=== PATIENT | female | born 1980 | race Caucasian/White ===

== ENCOUNTER 2017-02-25 17:27 | Inpatient (IN) | payer OTHER ==
[~2017-02-25] VITALS: Ht 162.6 cm; Wt 93.6 kg
[~2017-02-25 17:27] MED LIST: FERR27TA PO; INSU100V18 SQ; NPH,100V10 SQ; PREN1TAB49 PO
[2017-02-25 18:16] VITALS: Ht 162.6 cm; Wt 93.6 kg
[2017-02-25] MEDS ORDERED: METH250T PO (18:16)
[2017-02-25 18:17] VITALS: BP 126/85; PULSE 88; RESP 18
[2017-02-25 19:22] LABS: ADD SCAN DIFF NO
[2017-02-25 19:24] LABS: BASOPHILS % 0.4 % (0.0-2.0); EOSINOPHILS # 0.1 10^3/ul (0.0-0.5); EOSINOPHILS % 0.7 % (0.0-7.0); HEMATOCRIT 37.3 % (37.0-47.0); HEMOGLOBIN 12.9 g/dl (12.0-16.0); LYMPHOCYTES % 26.4 % (15.0-51.0); MEAN CORPUSCULAR HEMOGLOBIN 30.7 pg (29.0-33.0); MEAN CORPUSCULAR HGB CONC 34.6 g/dl (32.0-37.0); MEAN CORPUSCULAR VOLUME 88.8 fl (82.0-101.0); MEAN PLATELET VOLUME 10.7 fl (7.4-10.4); MONOCYTE # 0.6 10^3/ul (0.3-0.9); MONOCYTES % 5.6 % (0.0-11.0); NEUTROPHIL # 7.5 10^3/ul (1.6-7.5); NEUTROPHILS % 66.5 % (39.0-77.0); PLATELET COUNT 255 10^3/UL (140-415); RED CELL DISTRIBUTION WIDTH 13.9 % (11.5-14.5); WHITE BLOOD COUNT 11.3 10^3/ul (4.8-10.8)
--- NOTE | 2017-02-25 19:30 | RADRPT ---
PROCEDURE: US OB biophysical profile. CLINICAL INDICATION: decreased movements, hypertension TECHNIQUE: Multiple sonographic images of the pelvis were obtained. The images were reviewed on a PACS workstation. COMPARISON: No prior studies are available for comparison. FINDINGS: There is a single viable intrauterine gestation. Cardiac activity is present with 135 beats per min [place]. There is a vertex presentation. The placenta is fundal. There is no evidence of placental abruption. There is a normal amount of amniotic fluid with an CRISTINA = 12.4 the cm. Biophysical profile: movement 2/2 tone 2/2. breathing 2/2 CRISTINA 2/2 Total 03/30 RPTAT: AA . IMPRESSION: Normal biophysical profile. . .Silverio Santos MD, Date Time Electronically viewed and signed by .Silverio Santos MD, MD on 02/25/2017 19:30 .S/
[2017-02-25 19:45] LABS: ALBUMIN 3.9 g/dl (3.3-4.9); ALBUMIN/GLOBULIN RATIO 1.18; BILIRUBIN,INDIRECT 0.1 mg/dl (0-1.1); BILIRUBIN,TOTAL 0.1 mg/dl (0.2-1.3); CALCIUM 9.6 mg/dl (8.4-10.2); CREATININE 0.5 mg/dl (0.44-1.00); POTASSIUM 3.9 mmol/L (3.5-5.1); TOTAL PROTEIN 7.2 g/dl (6.1-8.1); URIC ACID 4.5 mg/dl (3.1-7.9)
[2017-02-25 19:47] LABS: PROTIME 13.2 Sec (12.2-14.2)
[2017-02-25 19:48] LABS: PARTIAL THROMBOPLASTIN TIME 28.6 Sec (25.0-35.0)
[2017-02-25 20:38] LABS: ADD UMIC YES; UR ASCORBIC ACID 40 mg/dL (NEGATIVE); UR BILIRUBIN (Dip) NEGATIVE (NEGATIVE); UR BLOOD (Dip) 1+ mg/dL (NEGATIVE); UR CLARITY SLIGHTLY CLOUDY (CLEAR); UR COLOR YELLOW (YELLOW); UR GLUCOSE (Dip) NEGATIVE (NEGATIVE); UR KETONES (Dip) 1+ mg/dL (NEGATIVE); UR LEUKOCYTE ESTERASE (Dip) TRACE Leu/ul (NEGATIVE); UR NITRITE (Dip) NEGATIVE (NEGATIVE); UR RBC 12 /HPF (0-5); UR SPECIFIC GRAVITY (Dip) 1.026 (1.003-1.030); UR SQUAMOUS EPITHELIAL CELL FEW /HPF (FEW); UR TOTAL PROTEIN (Dip) NEGATIVE (NEGATIVE); UR UROBILINOGEN (Dip) NEGATIVE (NEGATIVE)
[2017-02-25] MEDS ORDERED: DEXTROSE 5%-LR 1,000 ML IV SCH (20:43)
[2017-02-25] MEDS ORDERED: CARBOPROST 250 MCG INJ IM PRN (21:00)
[2017-02-25] MEDS ORDERED: CEFAZOLIN 2 GM/50 ML (PMX) 50 ML IV SCH (21:00)
[2017-02-25] MEDS ORDERED: OXYTOCIN 30 UNITS/LR 500 ML IV PRN (21:00)
[2017-02-25] MEDS ORDERED: METHYLERGONOVINE 0.2 MG INJ IM PRN (21:00)
[2017-02-25] MEDS ORDERED: OXYTOCIN 30 UNITS/LR 500 ML IV SCH (21:00)
[2017-02-25] MEDS ORDERED: MISOPROSTOL 200 MCG TAB PR PRN (21:00)
[2017-02-25] MEDS ORDERED: INSULIN ASPART [NOVOLOG] 3 ML PEN SC STA (21:06)
[2017-02-25] MEDS ORDERED: DEXTROSE 50% 50 ML SYRINGE IV PRN ×2 (21:30)
[2017-02-25] MEDS ORDERED: GLUCOSE GEL 15 GRAM TUBE PO PRN ×2 (21:30)
[2017-02-25] MEDS ORDERED: GLUCOSE GEL 15 GRAM TUBE BUCCAL PRN (21:30)
[2017-02-25] MEDS ORDERED: GLUCAGON 1 MG INJ IM PRN (21:30)
[2017-02-25] MEDS ORDERED: NPH, HUMAN INSULIN ISOPHANE 3ML VIAL SC ONE (21:30)
[2017-02-25] MEDS: LACTATED RINGER'S 1,000 ML IV SCH (21:32)
[2017-02-25] MEDS: ACCU-CHEK XX SCH ×2 (21:34→23:32)
[2017-02-25] MEDS ORDERED: METHYLDOPA 250 MG TAB PO SCH (22:00)
--- NOTE | 2017-02-25 22:18 | TRIAGE ---
OB Triage Datetime Report Generated by CPN: 02/25/2017 22:18 Datetime: 02/25/2017 21:53 Comments: LOSS OF CONTACT D/T PT'S POSITION WHILE EATING. 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 Datetime: 02/25/2017 21:28 Stage of : Labor Bedside Blood Glucose: 113 (Annotations: LR INFUSING AT 125 ML/HR) Datetime: 02/25/2017 21:23 Assessment Type: Admission Assessment Maternal Assessment Level of Consciousness: Fully Conscious DTR's/Clonus: DTRs 2+; No Clonus Headache: Denies Blurred Vision: No Respiratory Effort: Unlabored; Regular Rhythm; Equal Expansion Breath Sounds, Left: Clear and Equal Breath Sounds, Right: Clear and Equal Nausea/Vomiting: Denies RUQ Epigastric Pain: Denies Facial Edema: None Temperature Route: Oral Fall Risk Assessment History of Falling: (0) No Secondary Diagnosis: (0) No Ambulatory Aid: (0) Bedrest/Nurse Assist IV Therapy: (0) No Gait: (0) Normal/Bedrest/Immobile Mental Status: (0) Oriented to Own Ability Fall Score: 0 Fall Risk Score Definition: No Risk: No action required Pain Assessment Pain Scale: 0 Pain Presence: None/Denies Pain Type: N/A Pain Goal: 0 Pain Assessment Comments: PT DENIES FEELING ANY PAIN, UC'S OR CRAMPING Datetime: 02/25/2017 21:11 Stage of : Labor Datetime: 02/25/2017 20:27 Stage of : Labor Datetime: 02/25/2017 20:10 Stage of : OB Triage Datetime: 02/25/2017 19:55 Stage of : OB Triage Datetime: 02/25/2017 19:50 Stage of : OB Triage Datetime: 02/25/2017 19:40 Stage of : OB Triage Datetime: 02/25/2017 19:30 Stage of : OB Triage Datetime: 02/25/2017 19:15 Stage of : OB Triage Labor Evaluation Frequency: 2-5 Monitor Mode: External Duration (sec)2399: 40-90 Pattern: Normal: <= 5 Contractions in 10 Minutes Resting Tone [place]: Relaxed Heart Rate FHR Baseline Rate: 140 Monitor Mode: External US Variability: Moderate 6-25 bpm Accelerations: 15X15 Decelerations: None Category: Category I Pain Assessment Pain Scale: 0 Pain Presence: None/Denies Pain Type: N/A Pain Relief Measures: Comfort Measures Datetime: 02/25/2017 18:12 Assessment Type: Triage Maternal Assessment Level of Consciousness: Fully Conscious DTR's/Clonus: DTRs 2+; No Clonus Headache: Denies Blurred Vision: No Respiratory Effort: Unlabored; Regular Rhythm; Equal Expansion Breath Sounds, Left: Clear and Equal Breath Sounds, Right: Clear and Equal Nausea/Vomiting: Denies RUQ Epigastric Pain: Denies Lower Extremities Edema: None Degree: None Upper Extremities Edema: None Degree: None Facial Edema: None Fall Risk Assessment History of Falling: (0) No Secondary Diagnosis: (0) No Ambulatory Aid: (0) Bedrest/Nurse Assist IV Therapy: (0) No Gait: (0) Normal/Bedrest/Immobile Mental Status: (0) Oriented to Own Ability Fall Score: 0 Fall Risk Score Definition: No Risk: No action required Datetime: 02/25/2017 18:09 Time of Arrival: 02/25/2017 17:23 EGA: 38.5 Arrived By: Ambulatory Arrived From: Office Chief Complaint: pt sent from clinic for eval. HBP Movement: Present Rupture of Membranes: Denies Vaginal Bleeding: None Vaginal Discharge: Denies Recent Sexual Intercouse: Yes Abdominal Trauma: Not Applicable Patient Complaints: None Time Provider Notified: 02/25/2017 18:30 Provider Notified: ERNESTO Initial Plan: [facility]ICullen PANEL, BPP, EFM
[2017-02-26] MEDS: ACCU-CHEK XX SCH ×4 (01:38→20:05)
[2017-02-26] MEDS: LACTATED RINGER'S 1,000 ML IV SCH ×4 (04:06→22:19)
[2017-02-26] MEDS ORDERED: morphine SULFATE/PF (10 MG/10 ML) INJ ONE (06:45)
[2017-02-26] MEDS ORDERED: FENTAnyl 50 MCG/ML VIAL ONE (06:45)
[2017-02-26] MEDS ORDERED: PHENYLephrine (100 MCG/ML) 5ML SYG ONE (06:45)
--- NOTE | 2017-02-26 06:53 | HP ---
Date/Time of Note Date/Time of Note DATE: 02/26/17 TIME: 06:50 OB - History Hx of Present Free Text/Dictation with 3 prior c/s admitted w/ uterine ctxs : 5 Para: 4 Care: Good Care Ultrasounds: Normal mid trimester US Obstetrical Complications: None, Gestational Diabetes Medical Complications: None Past Family/Social History * Past Medical, Surgical, Family and Obstetric Histories reviewed from chart. OB Admission Exam Vital Signs Vital Signs Vital Signs Date Time Temp Pulse Resp B/P Pulse Ox O2 Delivery O2 Flow Rate FiO2 02/25/17 18:17 98.4 88 18 126/85 95 Room Air Physical Exam HEENT: WNL Heart: Rhythm Normal Lungs: Clear, Equal Abdomen: WNL Extremities: Normal Reflexes: Normal Last 72 hourBlood Glucose Bedside Glucose - 72 Hours Test 02/25/17 18:22 02/25/17 21:28 02/25/17 23:31 02/26/17 01:38 Bedside Glucose 115mg/dL (70-220) 113mg/dL (70-220) 111mg/dL (70-220) 118mg/dL (70-220) Test 02/26/17 03:44 02/26/17 05:34 Bedside Glucose 98mg/dL (70-220) 103mg/dL (70-220) Last 72 hours Lab Results CBC & BMP 02/25/17 19:00 Liver Function Test 02/25/17 19:00 Alanine Aminotransferase (ALT/SGPT) 29 Albumin 3.9 Alkaline Phosphatase 145 H Aspartate Amino Transf (AST/SGOT) 21 Direct Bilirubin 0.00 Total Protein 7.2 OB Assessment/Plan Reason for admission: active labor, section Plan: Section LYRIC OROZCO MD Feb 26, 2017 06:52
[2017-02-26] MEDS ORDERED: OXYTOCIN 30 UNITS/LR 500 ML BAG IV ONE (07:00)
[2017-02-26] MEDS ORDERED: ONDANSETRON 4 MG INJ ONE (07:02)
[2017-02-26] MEDS ORDERED: DEXAMETHASONE 4 MG/ML 1 ML INJ ONE (07:02)
[2017-02-26] MEDS ORDERED: HYDROmorphONE 1 MG/ML SYG IV PRN ×2 (07:30)
[2017-02-26] MEDS ORDERED: NALOXONE (0.4 MG/ML) INJ IV PRN (07:30)
--- NOTE | 2017-02-26 07:39 | OPR ---
Operative Report Planned Procedure Procedure date Feb 26, 2017 Performed by: LYRIC OROZCO MD Assisting provider: QUEENIE REHMAN M.D. Anesthesia Type: spinal Procedure Description Under satisfactory spinal anesthesia, the patient was prepped and draped and placed in a supine position, tilted to the left. Pfannenstiel incision was made , carried through the subcutaneous tissue. Bleeders brought under control with electrocautery. Fascia incised to the length of the incision. Rectus muscles from the fascia, divided midline. Peritoneum exposed, entered through a transverse incision. Exploration of abdomen revealed gravid uterus and multiple omental adhesions which were clamped and lysed and tied using one monocryl. Bladder flap was developed. Transverse incision was made in the lower segment of the uterus. Amniotic sac ruptured. ckear amniotic fluid noted. [] Nasal oropharyngeal suction was performed. The baby was handed to the team for immediate attention. The placenta was delivered manually intact. Uterine cavity was cleaned with wet sponge and drainage established. Uterus closed in 2 layers using [] in continuous fashion.the right and the left tube were ligated using o plain tie and the tubes were cut. Peritoneal cavity irrigated with warm saline. Sponge, needle and instrument count reported to be correct. Fascia closed with one monocryl [], and skin closed with anju. Estimated blood loss [700]mL. Post-Procedure Post-procedure diagnosis term preg, repeat c/s, lysis of adhesions and bilateral tubal ligation Findings: Live Baby [], Apgars [] and [], weight [], position [], [] presentation []cord. Specimen removed: Yes Specimen description right and left tubes Complications: None Pt Condition post procedure: stable Physician Certification I, the undersigned physician, hereby certify that I have discussed the procedure described in this consent form with this patient (or the patient's legal petroleum products sales representative), including: * The risk and benefits of the procedure; * Any adverse reactions that may reasonably be expected to occur; * Any alternative efficacious methods of treatment which may be medically viable ; * The potential problems that may occur during recuperation; * Potential for blood transfusion and associated risks/benefits; and * Any research or economic interest I may have regarding this treatment. I further certify that the patient/legally responsible person was encouraged to ask question and that all questions were answered. LYRIC OROZCO MD Feb 26, 2017 07:38
[2017-02-26] MEDS ORDERED: DIPHENHYDRAMINE 50 MG INJ ONE (09:00)
[2017-02-26] MEDS ORDERED: DIPHENHYDRAMINE 50 MG INJ IV ONE (09:05)
[2017-02-26] MEDS: KETOROLAC 30 MG INJ IV PRN ×2 (09:36→20:51)
[2017-02-26 10:05] VITALS: BP 132/73; PULSE 69; RESP 16
[2017-02-26] MEDS ORDERED: ACETAMINOPHEN/CODEINE #3 TAB PO PRN (10:30)
[2017-02-26] MEDS ORDERED: OXYTOCIN 30 UNITS/LR 500 ML IV PRN (10:30)
[2017-02-26] MEDS ORDERED: NA PHOSPHATE/BIPHOS 133 ML ENEMA PR PRN (10:30)
[2017-02-26] MEDS ORDERED: LANOLIN 7 GM TUBE TOP PRN (10:30)
[2017-02-26] MEDS ORDERED: MISOPROSTOL 200 MCG TAB PR PRN (10:30)
[2017-02-26] MEDS ORDERED: CARBOPROST 250 MCG INJ IM PRN (10:30)
[2017-02-26] MEDS ORDERED: NACL 0.9% 3 ML SYG IV SCH (10:30)
[2017-02-26] MEDS ORDERED: METHYLERGONOVINE 0.2 MG INJ IM PRN (10:30)
[2017-02-26 12:30] VITALS: BP 113/64; PULSE 77; RESP 17
[2017-02-26] MEDS: OXYTOCIN 30 UNITS/LR 500 ML IV SCH ×2 (13:39→18:33)
[2017-02-26] MEDS: IBUPROFEN 800 MG TAB PO SCH ×2 (14:00→22:00)
[2017-02-26 15:50] VITALS: BP 125/66; PULSE 75; RESP 17
[2017-02-26 20:00] VITALS: BP 110/65; PULSE 87; RESP 20
[2017-02-27] VITALS: BP 120/69; PULSE 80; RESP 18
[2017-02-27 04:00] VITALS: BP 111/60; PULSE 82; RESP 18
[2017-02-27] MEDS: KETOROLAC 30 MG INJ IV PRN (04:26)
[2017-02-27] MEDS: IBUPROFEN 800 MG TAB PO SCH ×3 (06:00→22:08)
[2017-02-27 07:44] LABS: ADD SCAN DIFF NO
[2017-02-27 07:45] VITALS: BP 107/69; PULSE 89; RESP 20
[2017-02-27 07:51] LABS: BASOPHIL # 0.1 10^3/ul (0.0-0.1); BASOPHILS % 0.5 % (0.0-2.0); EOSINOPHILS # 0.1 10^3/ul (0.0-0.5); EOSINOPHILS % 0.9 % (0.0-7.0); HEMATOCRIT 30.1 % (37.0-47.0); HEMOGLOBIN 10.1 g/dl (12.0-16.0); LYMPHOCYTES # 2.7 10^3/ul (0.8-2.9); MEAN CORPUSCULAR HGB CONC 33.6 g/dl (32.0-37.0); MEAN CORPUSCULAR VOLUME 89.3 fl (82.0-101.0); MEAN PLATELET VOLUME 10.7 fl (7.4-10.4); MONOCYTE # 0.9 10^3/ul (0.3-0.9); MONOCYTES % 8.3 % (0.0-11.0); NEUTROPHIL # 7.3 10^3/ul (1.6-7.5); NEUTROPHILS % 65.8 % (39.0-77.0); PLATELET COUNT 198 10^3/UL (140-415); RED BLOOD COUNT 3.37 10^6/ul (4.20-5.40); RED CELL DISTRIBUTION WIDTH 14.1 % (11.5-14.5); WHITE BLOOD COUNT 11.2 10^3/ul (4.8-10.8)
--- NOTE | 2017-02-27 08:42 | QN ---
Documentation Comment doing well vss abd soft incsion c&d cpm oob LYRIC OROZCO MD Feb 27, 2017 08:42
--- NOTE | 2017-02-27 08:43 | DS ---
Date/Time of Note Date/Time of Note DATE: 02/27/17 TIME: 08:42 Discharge Summary Admission/Discharge Info Admit Date/Time Feb 25, 2017 at 19:59 Discharge Date/Time term preg, multiparity Procedures repeat c/s , btl, lysis of adhesions Hospital Course unremarkable Home Meds Reported Medications Methyldopa* (Methyldopa*) 250 Mg Tablet, 250 MG PO BID, TAB 02/25/17 Vits W-Ca,Fe,Fa(<1MG) () 1 Tab Tablet, 1 TAB PO DAILY 12/07/11 Nph, Human Insulin Isophane* (Novolin N*) 100 U/Ml Vial, 26 SQ HS, #14 12/07/11 Nph, Human Insulin Isophane* (Novolin N*) 100 U/Ml Vial, 32 SQ BEFORE BREAKFAST , #44 12/07/11 Insulin Lispro (Humalog) 100 U/Ml Vial, 12 SQ BEFORE DINNER, #16 12/07/11 Insulin Lispro (Humalog) 100 U/Ml Vial, 16 SQ BEFORE BREAKFAST, #20 12/07/11 Discontinued Reported Medications Ferrous Sulfate (Iron) 1 Tab Tablet, 1 TAB PO DAILY 12/07/11 Primary Care Provider Edwar Gaona Pending Labs Laboratory Tests Test 02/26/17 14:18 02/26/17 22:14 02/27/17 07:15 02/27/17 07:34 Bedside Glucose 152mg/dL (70-220) 164mg/dL (70-220) 125mg/dL (70-220) White Blood Count 11.210^3/ul (4.8-10.8) Red Blood Count 3.3710^6/ul (4.20-5.40) Hemoglobin 10.1g/dl (12.0-16.0) Hematocrit 30.1% (37.0-47.0) Mean Corpuscular Volume 89.3fl (82.0-101.0) Mean Corpuscular Hemoglobin 30.0pg (29.0-33.0) Mean Corpuscular Hemoglobin Concent 33.6g/dl (32.0-37.0) Red Cell Distribution Width 14.1% (11.5-14.5) Platelet Count 24715^3/UL (140-415) Mean Platelet Volume 10.7fl (7.4-10.4) Neutrophils % 65.8% (39.0-77.0) Lymphocytes % 24.0% (15.0-51.0) Monocytes % 8.3% (0.0-11.0) Eosinophils % 0.9% (0.0-7.0) Basophils % 0.5% (0.0-2.0) Nucleated Red Blood Cells % 0.0/100WBC (0.0-0.0) Neutrophils # 7.310^3/ul (1.6-7.5) Lymphocytes # 2.710^3/ul (0.8-2.9) Monocytes # 0.910^3/ul (0.3-0.9) Eosinophils # 0.110^3/ul (0.0-0.5) Basophils # 0.110^3/ul (0.0-0.1) Nucleated Red Blood Cells # 0.010^3/ul (0.0-0.0) LYRIC OROZCO MD Feb 27, 2017 08:43
[2017-02-27] MEDS: OXYCODONE/ACETAMINOPHEN (5/325) TAB PO PRN ×3 (10:50→21:04)
[2017-02-27 15:41] VITALS: BP 124/78; PULSE 88; RESP 18
[2017-02-27] MEDS: ACCU-CHEK XX SCH ×3 (19:35→20:05)
[2017-02-27] MEDS: LACTATED RINGER'S 1,000 ML IV SCH ×2 (19:35→19:36)
[2017-02-27 20:00] VITALS: BP 129/79; PULSE 89; RESP 18
[2017-02-28] MEDS: OXYCODONE/ACETAMINOPHEN (5/325) TAB PO PRN ×2 (02:13→12:43)
[2017-02-28] MEDS: LACTATED RINGER'S 1,000 ML IV SCH ×3 (03:54→18:12)
[2017-02-28] MEDS: IBUPROFEN 800 MG TAB PO SCH ×3 (05:33→22:27)
[2017-02-28] MEDS: ACCU-CHEK XX SCH ×4 (07:30→20:05)
[2017-02-28 08:00] VITALS: BP 131/66; PULSE 83; RESP 20
--- NOTE | 2017-02-28 10:59 | QN ---
Documentation Comment doing well vss abd soft d/c home tomorrow LYRIC OROZCO MD Feb 28, 2017 10:59
[2017-02-28 16:00] VITALS: BP 124/73; PULSE 85
[2017-02-28 19:45] VITALS: BP 138/88; PULSE 90; RESP 19
[2017-03-01] MEDS: LACTATED RINGER'S 1,000 ML IV SCH ×2 (02:12→10:12)
[2017-03-01 03:50] VITALS: BP 131/68; PULSE 76; RESP 19
[2017-03-01] MEDS: IBUPROFEN 800 MG TAB PO SCH ×2 (05:33→13:08)
[2017-03-01] MEDS: ACCU-CHEK XX SCH ×3 (07:30→13:50)
[2017-03-01 07:45] VITALS: BP 123/64; PULSE 71; RESP 17
[2017-03-01] MEDS ORDERED: DIPHTH/TET/ACEL PERTUSS (ADULT) 0.5 ML VIAL IM* ONE (09:00)
[2017-03-01] MEDS ORDERED: MEASLES,MUMPS,RUBELLA VACCINE INJ SC* ONE (09:00)
[2017-03-01] MEDS: OXYCODONE/ACETAMINOPHEN (5/325) TAB PO PRN (09:34)
== END 2017-03-01 14:40 | disposition home or self-care (01) | DRG 766 ==
LOC: OBT 17:27 → L-D 17:28 → OBT 19:59 → L-D 19:59 → PP1 02-26 10:11
PROVIDERS: ADMIT Obstetrics & Gynecology; ATTEND Obstetrics & Gynecology
PROC: 10D00Z1 Extraction of Products of Conception, Low, Open Approach (ICD-10-PCS; principal; 2017-02-25)
PROC: 0UT70ZZ Resection of Bilateral Fallopian Tubes, Open Approach (ICD-10-PCS; 2017-02-25)
DX: O62.8 Other abnormalities of forces of labor (principal); O34.211 Maternal care for low transverse scar from previous cesarean delivery; O09.523 Supervision of elderly multigravida, third trimester; Z3A.38 38 weeks gestation of pregnancy; Z37.0 Single live birth; Z30.2 Encounter for sterilization
CPT/HCPCS: 76818; 80053; 81001; 82962; 84560; 85025; 85384; 85610; 85730; 86592; 86850; 86900; 86901; 86920; 87340; 88302; 90715; 94760; 99464; G0463; J0690; J1100; J1200; J1815; J1885; J2274; J2370; J2405; J2590; J3010; J7120; J7121